=== PATIENT | male | born 1990 | race Caucasian/White ===

== ENCOUNTER → 2022-10-19 11:58 | Outpatient (CLI) | payer OTHER, SELFPAY ==
--- NOTE | 2022-10-19 | DI.MRI.S_ITS ---
PROCEDURE: MR ELBOW RT WO CON INDICATIONS: Pain in right elbow TECHNIQUE: Noncontrast coronal proton density fast spin echo and T2 fast spin echo with fat saturation, axial and sagittal T1 spin echo and T2 fast spin echo with fat saturation through the elbow. COMPARISON: None. FINDINGS: Image quality: Excellent. Lateral structures: The lateral ulnar collateral ligament and radial collateral ligament both appear intact. The overlying common extensor tendon demonstrates mild tendinosis. Medial structures: The ulnar collateral ligament appears intact. The overlying common flexor tendon appears normal. There is mild thickening and increased signal intensity within the ulnar nerve at the level of the cubital tunnel. No compressive mass is seen. Mildly increased images T2-weighted signal is seen in the flexor carpi radialis muscle. No loss of muscle bulk or fatty infiltration. Anterior structures: The biceps and brachialis tendons both appear intact as they insert onto the proximal radius and ulna, respectively. No bicipitoradial bursal fluid. The median and radial neurovascular bundles appear normal; no focal muscle atrophy to suggest nerve impingement. Posterior structures: The conjoint triceps tendon from the long and lateral heads appears intact. The medial head of the triceps tendon also appears normal, with direct muscle insertion onto the olecranon. Mild nonspecific subcutaneous edema overlying the olecranon. Bone and cartilage: No bone marrow contusions or fractures. No osteochondral injuries. IMPRESSION: 1. Mild common extensor tendinosis. No tendon tearing is seen. 2. Mild thickening of the ulnar nerve at the level of the cubital tunnel, which is nonspecific but can be seen in the setting of ulnar neuritis. Recommend correlation with neurologic exam findings. 3. Subtle homogeneously increased T2-weighted signal in the flexor carpi radialis muscle is nonspecific but could represent mild or early denervation changes versus myositis or possibly a low-grade strain. Approved by: Pierre Wick M.D. on 10/19/2022 at 14:44
== END ==
PROVIDERS: PCP Preventive Medicine Aerospace Medicine; Referring Provider Preventive Medicine Aerospace Medicine; Visit Provider Preventive Medicine Aerospace Medicine
DX: M25.521 Pain in right elbow (principal)
CPT/HCPCS: 73221

== ENCOUNTER → 2023-10-18 09:42 | Outpatient (CLI) | payer OTHER, SELFPAY | LOC: PHYS 09:43 | PROVIDERS: Family Provider Preventive Medicine Aerospace Medicine; PCP Preventive Medicine Aerospace Medicine; Referring Provider Orthopaedic Surgery; Visit Provider Orthopaedic Surgery | DX: G56.20 Lesion of ulnar nerve, unspecified upper limb (principal) | CPT/HCPCS: 95886; 95909 ==